=== PATIENT | female | born 1970 | race Hispanic/Latino ===

== ENCOUNTER 2023-05-27 10:53 | Day surgery (SDC) | payer BC ==
[2023-05-21 13:35] LABS: BASOPHILS % (AUTO) 0.4 % (0.0-5.0); EOSINOPHILS % (AUTO) 0.2 % (0.0-8.0); LYMPHOCYTES % (AUTO) 22.9 % (21.0-51.0); MEAN CORPUSCULAR HEMOGLOBIN 30.6 pg (27.0-33.0); MEAN CORPUSCULAR HGB CONC 35.5 g/dL (32.0-36.0); MEAN CORPUSCULAR VOLUME 86.2 fL (79-99); MONOCYTES % (AUTO) 3.8 % (3.0-13.0); NEUTROPHILS % (AUTO) 72.5 % (40.0-77.0); PLATELET COUNT (AUTO) 182 K/uL (130-400); RED BLOOD CELL COUNT(AUTO) 4.87 MIL/uL (4.00-5.50); RED CELL DISTRIBUTION WIDTH 12.5 % (11.0-15.5); WHITE BLOOD COUNT (AUTO) 5.3 K/uL (4.8-10.8)
[2023-05-24 10:19] VITALS: BP 156/64
[~2023-05-27] VITALS: Ht 167.6 cm; Wt 89.7 kg
[2023-05-27] VITALS (16 sets, daily range): BP systolic 105–142; BP diastolic 51–89
[~2023-05-27 10:53] MED LIST: AMLO-257 PO; BIEST TP; BUTA1CAP53 PO; CELE-84 PO; FEXO1TAB8 PO; GABA-529 PO; NASAL SPRAY NASAL; PROG100C11 PO; THYR30TA24 PO
[2023-05-27] MEDS ORDERED: CALDOLOR 800MG+NS 250ML 250 ML IV ONE (11:04)
[2023-05-27] MEDS ORDERED: CEFAZOLIN SODIUM 2 GM VIAL ONE (11:46)
[2023-05-27] MEDS ORDERED: LACTATED RINGERS 1000ML 1,000 ML IV ONE (11:46)
[2023-05-27] MEDS ORDERED: PROPOFOL 10 MG/ML 20ML VIAL IV ONE (12:00)
[2023-05-27] MEDS ORDERED: MIDAZOLAM HCL 1 MG/ML 2ML VIAL ONE (12:00)
[2023-05-27] MEDS ORDERED: LIDOCAINE PF 100MG/5ML (2%) SYRINGE 5ML ONE (12:00)
[2023-05-27] MEDS ORDERED: FENTANYL CITRATE PF 50 MCG/1 ML 2ML VIAL ONE (12:01)
[2023-05-27] MEDS ORDERED: ONDANSETRON 4MG INJ ONE (12:16)
== END 2023-05-27 14:10 | disposition home or self-care (01) ==
LOC: DAH 10:53
PROVIDERS: ATTEND Obstetrics & Gynecology
DX: N95.0 Postmenopausal bleeding (principal); Z20.822 Contact with and (suspected) exposure to COVID-19; N95.2 Postmenopausal atrophic vaginitis; N81.4 Uterovaginal prolapse, unspecified; I10 Essential (primary) hypertension; J45.909 Unspecified asthma, uncomplicated; E78.5 Hyperlipidemia, unspecified; E03.9 Hypothyroidism, unspecified; K21.9 Gastro-esophageal reflux disease without esophagitis; Z98.891 History of uterine scar from previous surgery; Z98.890 Other specified postprocedural states; Z80.6 Family history of leukemia
CPT/HCPCS: 84703; 85025; 86850 ×2; 86900 ×2; 86901 ×2; 87426; 36415 ×2; 58563; 81025; A4663; J7030 ×2; A4351; A4355; J7120; J3010; J2001; J2250; J2704; J2405; J1741; J0690; A4215; A4223; A4222; A4221